=== PATIENT | female | born 1960 | race Caucasian/White ===

== ENCOUNTER 2025-07-17 10:11 | Emergency (ER) | payer MEDICARE ==
[2025-07-17 11:09] LABS: Troponin I Less than 0.010 ng/mL (< 0.028)
[2025-07-17 11:12] LABS: ALT (SGPT) 47 U/L (Less than 34); AST (SGOT) 38 U/L (11-34); Albumin 4.6 g/dL (3.1-4.5); Alkaline Phosphatase 92 U/L (40-110); Anion Gap 16 mmol/L (10-20); BUN (Urea Nitrogen) 11 mg/dL (9.8-20.1); Bilirubin, Total 0.6 mg/dL (0.3-1.2); Calc. Creatinine Clearance 0 mL/min (70-130); Calcium 9.5 mg/dL (7.8-10.44); Carbon Dioxide 23 mmol/L (23-31); Chloride 104 mmol/L (98-107); Globulin 3.2 g/dL (2.4-3.5); Glucose 111 mg/dL (80-115); Potassium 3.9 mmol/L (3.5-5.1); Sodium 139 mmol/L (136-145)
[2025-07-17 11:25] LABS: %Eosinophils 3.6 % (0.0-10.0); %Lymphocytes 25.0 % (21.0-51.0); %Monocytes 5.2 % (0.0-10.0); %Neutrophils 64.8 % (42.0-75.0); Hematocrit 43.9 % (36.0-47.0); Hemoglobin 14.3 g/dL (12.0-16.0); Manual Diff?? NO; Mean Corpuscular Hemoglobin 29.2 pg (27.0-31.0); Mean Corpuscular Volume 89.6 fl (78.0-98.0); Platelet Count 185 10x3/uL (130-400); Red Blood Cell (RBC) Count 4.89 mill/uL (4.20-5.40); White Blood Cell (WBC) Count 4.6 10x3/uL (4.8-10.8)
[2025-07-17 11:26] LABS: #Basophils 0.1 thou/uL (0.0-0.2); #Eosinophils 0.2 thou/uL (0.0-0.7); #Lymphocytes 1.2 thou/uL (1.20-3.40); #Monocytes 0.2 thou/uL (0.11-0.59); #Neutrophils 3.0 thou/uL (1.40-6.50); %Basophils 1.4 % (0.0-1.0)
[2025-07-17] MEDS ORDERED: Aspirin Chewable 81 MG TAB ONE (11:33)
[2025-07-17 14:21] LABS: Troponin I 0.017 ng/mL (< 0.028)
[2025-07-17] MEDS ORDERED: Nitroglycerin 2% Ointment 1 INCH/1 GM Packet ONE (14:50)
[2025-07-17 17:26] LABS: Troponin I 0.014 ng/mL (< 0.028)
== END 2025-07-17 17:52 | disposition short-term general hospital (02) ==
LOC: NAV ERS 10:11
DX: R07.89 Other chest pain (principal); R79.89 Other specified abnormal findings of blood chemistry; R42 Dizziness and giddiness; R00.2 Palpitations; F41.9 Anxiety disorder, unspecified
CPT/HCPCS: 36415; 71045; 80053; 84484; 85025; 93005; 94760